=== PATIENT | male | born 1965 | race Caucasian/White ===

== ENCOUNTER 2019-12-19 14:41 | Emergency (ER) | payer SELFPAY ==
[2019-12-19] MEDS ORDERED: Ketorolac 60 MG/2 ML SDV IM ONE (15:34)
[2019-12-19] MEDS ORDERED: Ketorolac 60 MG/2 ML SDV ONE (15:41)
--- NOTE | 2019-12-19 16:10 | EDM.PDOC ---
ED HPI GENERAL MEDICAL PROBLEM - General Chief Complaint: General Stated Complaint: FALL HURT R ANKLE Time Seen by Provider: 12/19/19 15:00 Source of Information: Reports: Patient History Limitations: Reports: No Limitations - History of Present Illness INITIAL COMMENTS - FREE TEXT/NARRATIVE: Patient is a 54 y/o male who fell onto his right lower leg after slipping on the dock at work yesterday. He is unable to bear weight or ambulate without pain. Patient doesn't have insurance and doesn't know if this will be covered under workmen's compensation. Patient also states he doesn't want narcotics, but wants something for the pain. Patient has been using ice and elevating his right leg as much as he can since the injury. Treatments ROUGE [facility]ILLER: Reports: Acetaminophen Right Ankle Pain Score (Numeric/FACES): 6 - Related Data Allergies Allergy/AdvReac Type Severity Reaction Status Date / Time No Known Allergies Allergy Verified 12/19/19 14:58 Home Meds: Home Meds NK [No Known Home Meds] 12/19/19 [History] Past Medical History - Past Health History Medical/Surgical History: Denies Medical/Surgical History Social & Family History - Family History Family Medical History: Noncontributory - Tobacco Use Smoking Status *Q: Current Every Day Smoker Years of Tobacco use: 30 Packs/Tins Daily: 0.7 - Caffeine Use Caffeine Use: Reports: Coffee, Soda - Recreational Drug Use Recreational Drug Use: Yes Recreational Drug Type: Reports: Marijuana/Hashish Recreational Drug Use Frequency: Daily ED ROS GENERAL - Review of Systems Review Of Systems: See Below Constitutional: Reports: No Symptoms Respiratory: Reports: No Symptoms Cardiovascular: Reports: No Symptoms Musculoskeletal: Reports: Leg Pain Skin: Reports: No Symptoms Neurological: Reports: No Symptoms ED EXAM, GENERAL - Physical Exam Exam: See Below Exam Limited By: No Limitations General Appearance: Alert, No Apparent Distress Head: Atraumatic, Normocephalic Respiratory/Chest: No Respiratory Distress, No Accessory Muscle Use Peripheral Pulses: 2+: Posterior Tibial (L), Posterior Tibial (R), Dorsalis Pedis (L), Dorsalis Pedis (R) Extremities: Normal Inspection, Normal Range of Motion, No Pedal Edema, Normal Capillary Refill, Other (right lateral mid-brown tenderness with palpation) Neurological: Alert, Oriented, No Motor/Sensory Deficits Skin Exam: Warm, Dry, Intact Course - Vital Signs Last Recorded V/S: Last Vital Signs Temp 37.2 C 12/19/19 14:56 Pulse 94 12/19/19 14:56 Resp 18 12/19/19 14:56 BP 173/112 H 12/19/19 14:56 Pulse Ox 98 12/19/19 14:56 - Orders/Labs/Meds Orders: Active Orders 24 hr Category Date Time Status Ankle Min 3V Rt [CR] Stat Exams 12/19/19 15:06 Taken FRANSISCO Bandage [Elastic Wrap] [OM.PC] Routine Oth 12/19/19 16:04 Ordered Specialty Boots [OM.PC] Routine Oth 12/19/19 16:04 Ordered Meds: Medications Discontinued Medications Generic Name Dose Route Start Last Admin Trade Name Freq PRN Reason Stop Dose Admin Ketorolac Tromethamine 60 mg 12/19/19 15:34 12/19/19 15:36 Toradol IM 12/19/19 15:35 60 mg ONETIME ONE Administration Ketorolac Tromethamine Confirm 12/19/19 15:41 Toradol Administered 12/19/19 15:42 Dose 60 mg .ROUTE .STK-MED ONE Departure - Departure Time of Disposition: 16:00 Disposition: Home, Self-Care 01 Condition: Good Clinical Impression: Closed right fibular fracture Qualifiers: Encounter type: initial encounter Fibula location: shaft Fracture morphology: transverse Fracture alignment: nondisplaced Qualified Code(s): S82.424A - Nondisplaced transverse fracture of shaft of right fibula, initial encounter for closed fracture - Discharge Information *PRESCRIPTION DRUG MONITORING PROGRAM REVIEWED*: Not Applicable *COPY OF PRESCRIPTION DRUG MONITORING REPORT IN PATIENT RADHA: Not Applicable Instructions: Nondisplaced Fibular Ankle Fracture Treated With Immobilization, Adult Referrals: PCP,None [Primary Care Provider] - Sepsis Event Note (ED) - Evaluation Sepsis Screening Result: No Definite Risk - Focused Exam Vital Signs: Vital Signs Temp Pulse Resp BP Pulse Ox 12/19/19 14:56 37.2 C 94 18 173/112 H 98 12/19/19 14:52 37.2 C 94 18 173/112 H 98 - My Orders Last 24 Hours: My Active Orders 12/19/19 15:06 Ankle Min 3V Rt [CR] Stat 12/19/19 16:04 FRANSISCO Bandage [Elastic Wrap] [OM.PC] Routine Specialty Boots [OM.PC] Routine - Assessment/Plan Last 24 Hours: My Active Orders 12/19/19 15:06 Ankle Min 3V Rt [CR] Stat 12/19/19 16:04 FRANSISCO Bandage [Elastic Wrap] [OM.PC] Routine Specialty Boots [OM.PC] Routine Plan: Patient doesn't want Ortho follow up due to insurance and refuses any pain medications. Toradol given in the clinic, as well as a boot, fransisco wraps, and crutches. No weight or ambulation x 6 weeks. Ice, elevation, rest, and compression.
--- NOTE | 2019-12-20 08:58 | CR ---
DATE OF SERVICE: 12/19/19 CLINICAL DATA: ankle swelling RIGHT ANKLE: There is soft tissue swelling over the medial and lateral malleoli. No acute fracture or dislocation. 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 There is a plantar calcaneal spur. [id number] [facility]
== END 2019-12-19 16:30 | disposition home or self-care (01) ==
LOC: LB.ED 14:41
DX: S82.424A Nondisplaced transverse fracture of shaft of right fibula, initial encounter for closed fracture (principal); F17.210 Nicotine dependence, cigarettes, uncomplicated; W01.0XXA Fall on same level from slipping, tripping and stumbling without subsequent striking against object, initial encounter; Y99.0 Civilian activity done for income or pay
CPT/HCPCS: 73610; 96372; 99283; J1885